=== PATIENT | female | born 1995 | race Caucasian/White ===

== ENCOUNTER 2018-11-29 18:50 | Emergency (ER) | payer OTHER ==
[2018-11-29] MEDS ORDERED: ONDANSETRON 4 MG TAB.RAPDIS PO ONE (19:29)
[2018-11-29] MEDS ORDERED: IBUPROFEN 800 MG TABLET PO ONE (19:29)
--- NOTE | 2018-11-29 19:29 | ER Document Report ---
ED Medical Screen (RME) - General Chief Complaint: Abdominal Pain Stated Complaint: ABDOMINAL PAIN Time Seen by Provider: 11/29/18 19:24 - HPI Notes: 11/29/18 19:27 Patient is a 23-year-old female with a history of ovarian cyst who presents complaint left lower pelvic pain that began today. Patient states the pain is sharp and does not radiate. She has had pain like this before which was previous ovarian cyst. Patient states that she has had some nausea and occasional dizziness associated. She is otherwise urinating normally and having normal bowel movements. No other vaginal discharge, odor, or bleeding. No fever. I have treated and performed a rapid initial assessment of this patient. A comprehensive ED assessment and evaluation of the patient, analysis of test results and completion of medical decision making process will be conducted by additional ED providers. PHYSICAL EXAMINATION: GENERAL: Well-appearing, well-nourished and in no acute distress. Abd: + tenderness left lower pelvic. - Related Data Allergies/Adverse Reactions: No Known Allergies Allergy (Unverified 11/29/18 19:25) Physical Exam - Vital signs Vitals: Temp Pulse Resp BP Pulse Ox 98.8 F 87 18 129/70 H 98 11/29/18 19:11 11/29/18 19:11 11/29/18 19:11 11/29/18 19:11 11/29/18 19:11 Course - Vital Signs Vital signs: Temp Pulse Resp BP Pulse Ox 98.8 F 87 18 129/70 H 98 11/29/18 19:11 11/29/18 19:11 11/29/18 19:11 11/29/18 19:11 11/29/18 19:11
[2018-11-29 19:53] LABS: APPEARANCE,URINE CLEAR; BILIRUBIN,URINE NEGATIVE (NEGATIVE); COLOR,URINE STRAW; GLUCOSE, URINE NEGATIVE (NEGATIVE); KETONES,URINE NEGATIVE (NEGATIVE); PROTEIN,URINE NEGATIVE (NEGATIVE); URINE SPECIFIC GRAVITY 1.004; UROBILINOGEN,URINE NEGATIVE mg/dL (<2.0)
[2018-11-29 20:20] LABS: ABSOLUTE EOSINOPHILS # (AUTO) 0.2 10^3/uL (0.0-0.6); ABSOLUTE LYMPHOCYTES (AUTO) 4.2 10^3/uL (0.5-4.7); ABSOLUTE MONOCYTES (AUTO) 0.6 10^3/uL (0.1-1.4); ABSOLUTE NEUT (AUTO) 4.7 10^3/uL (1.7-8.2); BASOPHILS % (AUTO) 0.4 % (0-2); EOSINOPHILS % (AUTO) 1.8 % (0-6); HEMATOCRIT 41.3 % (36.0-47.0); HEMOGLOBIN 13.8 g/dL (12.0-15.5); LYMPHOCYTES % (AUTO) 43.3 % (13-45); MEAN CORPUSCULAR HEMOGLOBIN 29.1 pg (27.0-33.4); MEAN CORPUSCULAR HGB CONC 33.5 g/dL (32.0-36.0); MEAN CORPUSCULAR VOLUME 87 fl (80-97); MONOCYTES % (AUTO) 6.5 % (3-13); PLATELET COUNT 278 10^3/uL (150-450); RED BLOOD COUNT 4.75 10^6/uL (3.72-5.28); RED CELL DISTRIBUTION WIDTH 12.9 % (11.5-14.0); TOTAL CELLS COUNTED % (AUTO) 100 %; WHITE BLOOD COUNT 9.8 10^3/uL (4.0-10.5)
[2018-11-29 20:40] LABS: ALBUMIN 4.5 g/dL (3.5-5.0); ALKALINE PHOSPHATASE 49 U/L (38-126); ANION GAP 8 (5-19); ASPARTATE AMINO TRANSFERASE 20 U/L (14-36); BILIRUBIN,TOTAL 0.3 mg/dL (0.2-1.3); BLOOD UREA NITROGEN 11 mg/dL (7-20); CALCIUM 9.7 mg/dL (8.4-10.2); CARBON DIOXIDE 28 mmol/L (22-30); CHLORIDE 103 mmol/L (98-107); GLUCOSE 109 mg/dL (75-110); POTASSIUM 3.9 mmol/L (3.6-5.0); TOTAL PROTEIN 7.6 g/dL (6.3-8.2)
--- NOTE | 2018-11-29 21:11 | RADIOLOGY REPORT (SQ) ---
EXAM DESCRIPTION: US PELVIS TRANSVAGINAL COMPLETED DATE/TME: 11/29/2018 19:26 CLINICAL HISTORY: 23 years Female LL pelvic pain COMPARISON: None. TECHNIQUE: Transvaginal duplex imaging performed to evaluate the pelvis. FINDINGS: The cervix appears closed and measures 2.3 cm. IUD in the uterus. Uterus measures 6.9 x 3.9 x 3.2 cm. Right ovary is obscured by bowel gas. Left ovary measures 3.1 x 2.9 cm with normal flow. Simple appearing left ovarian cyst which measures 1.6 x 1.37 m. This is almost certainly benign and no follow-up is recommended. No free fluid. IMPRESSION: Simple appearing left ovarian cyst. No follow-up is recommended IUD in the uterus Nonvisualization of the right ovary.
[2018-11-30] MEDS ORDERED: ONDANSETRON ODT 4 MG TAB (6 TAB/ER DISP) PO PRN (00:43)
[2018-11-30] MEDS ORDERED: HYDROCODONE/ACETAMINOPHEN 5-325 MG (6 TAB/ER DISP) PO PRN (00:43)
--- NOTE | 2018-11-30 00:45 | ER Document Report ---
ED GI/ - General Chief Complaint: Pelvic Pain Stated Complaint: ABDOMINAL PAIN Time Seen by Provider: 11/29/18 19:24 Notes: Patient is a 23-year-old female that comes emergency department for chief complaint of left lower quadrant pain. She states that it feels like a cyst, she states she became concerned because she had a sharp pain and felt a little bit lightheaded, she denies vomiting but she did get nauseated. She denies vaginal bleeding or discharge, she is sexually active with her but denies any other partners, she denies fever/chills. She has an IUD in place. She states that she has the IUD because this does help with her endometriosis but states that she does get ovarian cyst slightly frequently. She denies medi jaime history otherwise. TRAVEL OUTSIDE OF THE [place] IN LAST 30 DAYS: Yes - Related Data Allergies/Adverse Reactions: No Known Allergies Allergy (Unverified 11/29/18 19:25) Past Medical History - General Information source: Patient - Social History Smoking Status: Never Smoker Chew tobacco use (# tins/day): No Frequency of alcohol use: Social Drug Abuse: None Lives with: Family Family History: Reviewed & Not Pertinent Patient has suicidal ideation: No Patient has homicidal ideation: No Renal/ Medical History: Reports: Hx Ovarian Cysts Past Surgical History: Reports: Hx Orthopedic Surgery - Bilat knees - Immunizations Immunizations up to date: Yes Hx Diphtheria, Pertussis, Tetanus Vaccination: Yes Review of Systems - Review of Systems Constitutional: No symptoms reported EENT: No symptoms reported Cardiovascular: No symptoms reported Respiratory: No symptoms reported Gastrointestinal: See HPI Genitourinary: See HPI Female Genitourinary: See HPI Musculoskeletal: No symptoms reported Skin: No symptoms reported Hematologic/Lymphatic: No symptoms reported Neurological/Psychological: No symptoms reported Physical Exam - Vital signs Vitals: Temp Pulse Resp BP Pulse Ox 98.8 F 87 18 129/70 H 98 11/29/18 19:11 11/29/18 19:11 11/29/18 19:11 11/29/18 19:11 11/29/18 19:11 - Notes Notes: GENERAL: Alert, interacts well. No acute distress. HEAD: Normocephalic, atraumatic. EYES: Pupils equal, round, and reactive to light. Extraocular movements intact. ENT: Oral mucosa moist, tongue midline. Oropharynx unremarkable. Airway patent. NECK: Full range of motion. Supple. Trachea midline. LUNGS: Clear to auscultation bilaterally, no wheezes, rales, or rhonchi. No respiratory distress. HEART: Regular rate and rhythm. No murmur ABDOMEN: Tender in the left lower pelvic area, however there is no guarding over the area, general abdomen is benign, no swelling, bowel sounds present GENITOURINARY: Deferred EXTREMITIES: Moves all 4 extremities spontaneously. No edema, normal radial and dorsalis pedis pulses bilaterally. No cyanosis. BACK: no cervical, thoracic, lumbar midline tenderness. No saddle anesthesia, normal distal neurovascular exam. NEUROLOGICAL: Alert and oriented x3. Normal speech. Cranial nerves II through XII grossly intact. PSYCH: Normal affect, normal mood. SKIN: Warm, dry, normal turgor. No rashes or lesions noted. Course - Re-evaluation Re-evalutation: Patient well-appearing. She does have some tenderness over the left pelvic area on exam but no guarding or severe tenderness. No vomiting, no fever, no discharge. I did discuss pelvic exam but this was declined. IUD in place. test negative. CBC, chemistry unremarkable. Patient states relief about the specifics of her ultrasound, she was concerned it was worse. I did provide with some symptom management for home, discussed expectations, follow- up, and return precautions. Patient states appreciation and agreement. - Vital Signs Vital signs: Temp Pulse Resp BP Pulse Ox 98.2 F 88 17 112/69 99 11/30/18 00:56 11/30/18 00:56 11/30/18 00:56 11/30/18 00:56 11/30/18 00:56 - Laboratory Result Diagrams: 11/29/18 20:00 11/29/18 20:00 Discharge - Discharge Clinical Impression: Pelvic pain Ovarian cyst Qualifiers: Laterality: left Qualified Code(s): N83.202 - Unspecified ovarian cyst, left side Condition: Stable Disposition: HOME, SELF-CARE Additional Instructions: Your ultrasound does show a simple cyst on the left side which is most likely the cause of your pain, however this does not appear to require follow-up. This should resolve on its own. The remaining work-up is unremarkable including placement of the IUD. Follow-up with primary care and [facility]. Return if you worsen including sudden severe worsening pain, vomiting, fever, or any other concerning symptoms. Prescriptions: Ondansetron [Zofran Odt 4 mg Tablet] 1 - 2 tab PO Q4H PRN #15 tab.rapdis PRN Reason: For Nausea/Vomiting
[2018-11-30 00:56] VITALS: BP 112/69
== END 2018-11-30 00:56 | disposition home or self-care (01) ==
LOC: ER 18:50
DX: N83.202 Unspecified ovarian cyst, left side (principal); R10.2 Pelvic and perineal pain; R10.32 Left lower quadrant pain; Z97.5 Presence of (intrauterine) contraceptive device
CPT/HCPCS: 36415; 84703; 85025; 80053; 81001; 76830; 93976; S0119; 99284